=== PATIENT | male | born 1995 | race Caucasian/White ===

== ENCOUNTER 2016-09-25 19:32 | Emergency (ER) | payer OTHER ==
[~2016-09-25] VITALS: Wt 104.3 kg
[2016-09-25] MEDS ORDERED: BACTRIM DS 8001 TA1 PO (21:24)
== END 2016-09-25 21:44 | disposition home or self-care (01) ==
LOC: ED 19:32
DX: L02.31 Cutaneous abscess of buttock (principal); F17.200 Nicotine dependence, unspecified, uncomplicated; Z88.6 Allergy status to analgesic agent; Z88.8 Allergy status to other drugs, medicaments and biological substances